=== PATIENT | male | born 1950 | race Caucasian/White ===

== ENCOUNTER 2018-08-13 22:06 | Emergency (ER) | payer SELFPAY ==
[2018-08-13 22:12] VITALS: BMI 36.7
[2018-08-14] MEDS ORDERED: ACETAMINOPHEN 1000 MG/100 ML VIAL (NON FORMULARY) IVPB ONE (00:27)
--- NOTE | 2018-08-14 00:52 | PDOC ---
History of Present Illness - General Chief Complaint: Blood Pressure Problem Stated Complaint: HYPERTENTION Time Seen by Provider: 08/13/18 23:58 - History of Present Illness Initial Comments: Guido Skaggs is a 67yo man with a PMH of HTN and NIDDM who presents reporting severe abdominal pain secondary to an umbilical hernia. He is mostly [place]ian speaking, and his sons are at bedside to help translate. He reports that he was feeling well today, went to his son's business for a snack, and began having acute onset of severe abdominal pain. This occurred around 6pm. The pain was initially generalized, and his stomach felt firm. He noticed that his umbilical hernia was "sticking out," which it has never done for any length of time previously, though he did know that he had a hernia. He attempted to wait out the pain at home, but he was unable to do so and presented to the ED after a few hours. He says that due to the abdominal pain, he did not take his evening blood pressure medications when he normally does. The meds were taken several hours late, but he did take his usual dose. He does not remember what medications he takes at home, however. Other than the pain today, he has been feeling well. He ate normal meals today, has had no change in bowel movements, has no nausea or vomiting, and denies any fevers or chills. He additionally denies any headache, neurological deficits, change in vision, chest pain, SOB, or change in urination frequency today. Past History - Past Medical History Allergies/Adverse Reactions: Allergies Allergy/AdvReac Type Severity Reaction Status Date / Time No Known Allergies Allergy Verified 08/13/18 22:12 COPD: No Diabetes: Yes HTN: Yes - Suicide/Smoking/Psychosocial Hx Smoking History: Unknown if ever smoked Review of Systems - Review of Systems Comments:: General: No fevers, no chills, no weight or appetite change, no malaise HEENT: No changes in vision, no changes in hearing, no congestion, no sore throat CV: No chest pain, no palpitations, no LE edema Pulm: No SOB, no cough, no wheezing GI: No nausea or vomiting, no change in bowel habits, no melena. See HPI : No frequency, no urgency, no dysuria Musc: No back pain, no joint swelling, no recent injury Skin: No rash, no lesions, no erythema Endo: No excessive thirst, no heat/cold intolerance Heme: No unusual bruising or bleeding, no swollen glands Neuro: No syncope, no numbness/tingling, no focal weakness Vasc: No claudication Psych: No recent change in mood, no SI or HI *Physical Exam - Vital Signs Last Vital Signs Temp Pulse Resp BP Pulse Ox 97.4 F L 65 18 229/108 H 98 08/13/18 22:07 08/13/18 22:07 08/13/18 22:07 08/13/18 22:07 08/13/18 22:07 - Physical Exam Comments: General: Uncomfortable but in no acute distress HEENT: PERRL, EOMI, MMM, voice normal, normal neck ROM Cards: RRR, no murmur appreciated Pulm: Comfortable on room air, clear to auscultation bilaterally Abd: Soft, nondistended, obese. 3cm round umbilical hernia, moderately TTP during attempts to reduce but not exquisitely tender. No erythema, edema, skin darkening. Ext: Atraumatic. No LE edema. ROM intact Vasc: Extremities WWP Skin: Normal color, no rashes or lesions Neuro: A&Ox3, CN grossly intact, normal speech, motor/sensory grossly intact and symmetric Psych: Mood appropriate to situation ED Treatment Course - LABORATORY CBC & Chemistry Diagram: 08/14/18 00:50 08/14/18 00:50 - RADIOLOGY Radiology Studies Ordered: Category Date Time Status ABDOMEN & PELVIS CT WITH CONTR [CT] Stat CT Scan 08/14/18 00:28 Ordered Medical Decision Making - Medical Decision Making 08/14/18 00:52 Guido Skaggs is a 67yo man with a PMH of HTN and NIDDM who presents with abdominal pain due to an umbilical hernia that has become stuck since about 6pm. He states that this has never happened in the past, the hernia has always spontaneously reduced without intervention. He denies any fevers, chills, nausea , change in bowel habits or other current symptoms. He was noted to be hypertensive to the 200's on arrival, though he reports taking his medications very late today; he denies any neurological symptoms, chest pain, lack of normal urination, or other symptoms concerning for hypertensive emergency. - Visible umbilical hernia. TTP but no erythema or edema surrounding. Does not appear strangulated - Pt did not tolerate attempt to reduce the hernia at bedside due to pain - Preop labs including CBC, CMP, coags, T&S. Lactate to evaluate for ischemia - IV acetaminophen, will reattempt to reduce the hernia. - HTN may be due to pain or taking meds late; will recheck 08/14/18 01:52 - Hernia successfully reduced at bedside after pt received acetaminophen - Discussed w/ patient and his family at bedside that he needs to see a surgeon as the hernia defect is still present, and he could have a recurrence of incarcerated or possibly strangulated hernia in the future. All state understanding. Mr Skaggs says that he is going to [place] tomorrow but will follow up with a surgeon there as soon as possible - BP rechecked, now 164/74 - Will most likely d/c home pending lab results. 08/14/18 02:06 - Labs unremarkable. Will d/c home - Reitterated to Mr Skaggs that he needs to see a surgeon. Discussed return precautions. He states understanding and agreement. Seen with Dr Wilkinson. Candy Sloan PGY2 *DC/Admit/Observation/Transfer Diagnosis at time of Disposition: Umbilical hernia Qualifiers: Obstruction and gangrene presence: without obstruction or gangrene Qualified Code(s): K42.9 - Umbilical hernia without obstruction or gangrene - Discharge Dispostion Disposition: HOME Condition at time of disposition: Stable Decision to Admit order: No - Referrals Referrals: Uday Taylor MD [Staff Physician] - - Patient Instructions Printed Discharge Instructions: DI for Ventral Hernia Additional Instructions: Discharge Instructions: You were seen in the ED for abdominal pain due to an umbilical (abdominal) hernia that became stuck. This was pushed back into place in the ED. Home Care and Follow Up: - If your hernia becomes stuck again, you may use firm constant pressure to push it back into place - You need to see a surgeon as soon as possible as your hernia may need surgical repair. You should try to see a surgeon within the next week. You have been given contact information for Dr Taylor if you want to see someone from [facility], but you should try to schedule an appointment as soon as possible when you arrive in [place]. - Seek immediate medical care if your hernia cannot be pushed back especially if you also have fever to 101F, notice redness or swelling on the overlying skin , you have nausea and vomiting, you stop having bowel movements or passing gas, the hernia is so painful you cannot touch it, or you have any other medical emergency. - Post Discharge Activity
[2018-08-14] MEDS ORDERED: ACETAMINOPHEN INJECTION 100 ML IVPB ONE (00:58)
[2018-08-14 01:02] LABS: BASO % 0.8 % (0-2.0); EOS % 5.3 % (0-4.5); HEMATOCRIT 47.7 % (35.4-49); HEMOGLOBIN 15.5 GM/dL (11.7-16.9); LYMPH % 19.1 % (8-40); MCH 27.1 pg (25.7-33.7); MCHC 32.5 g/dl (32.0-35.9); MEAN CELL VOLUME 83.3 fl (80-96); MEAN PLT VOLUME 7.6 fl (7.5-11.1); MONO % 9.3 % (3.8-10.2); NEUT % 65.5 % (42.8-82.8); PLATELET COUNT 327 K/MM3 (134-434); RBC 5.73 M/mm3 (4.00-5.60); RDW 15.3 % (11.9-15.9); WHITE BLOOD COUNT 8.3 K/mm3 (4.0-10.0)
[2018-08-14 01:24] LABS: INR 1.23 (0.83-1.09); PROTHROMBIN TIME (PATIENT) 14.5 SEC (9.7-13.0)
[2018-08-14 01:27] LABS: ACTIVATED PTT 35.9 SECONDS (25.2-36.5)
[2018-08-14 01:36] LABS: ALBUMIN 3.7 g/dl (3.4-5.0); BILIRUBIN,TOTAL 0.5 mg/dL (0.2-1); BLOOD UREA NITROGEN 16.9 mg/dL (7-18); CREATININE 0.7 mg/dL (0.55-1.3); MAGNESIUM 2.2 mg/dL (1.8-2.4); POTASSIUM 4.3 mmol/L (3.5-5.1); TOT PROT 7.1 g/dl (6.4-8.2)
--- NOTE | 2018-08-14 01:47 | PDOC ---
Documentation entered by Rober Interiano SCRIBE, acting as scribe for Nelida Wilkinson MD. Nelida Wilkinson MD: This documentation has been prepared by the jasonibe, Rober Interiano SCRIBE, under my direction and personally reviewed by me in its entirety. I confirm that the documentation accurately reflects all work, treatment, procedures, and medical decision making performed by me. Attending Attestation - Resident Resident Name: Candy Sloan - ED Attending Attestation I have performed the following: I have examined & evaluated the patient, The case was reviewed & discussed with the resident, I agree w/resident's findings & plan, Exceptions are as noted - HPI HPI: 08/14/18 00:40 The patient is a 67 year old male with a past medical history of diabetes, umbilical hernia, and HTN here today for evaluation of incarcerated umbilical hernia. The patient reports around 5 PM developed pain at the site of his hernia. He reports that because of this he forgot to take his blood pressure medication. Blood pressure on arrival was 229/118. Patient denies headache, lightheadedness. Denies fever, chills. Denies chest pain, shortness of breath. Denies nausea, vomiting, diarrhea. Allergies: NKA - Physicial Exam PE: 08/14/18 01:21 Well developed, well nourished. Awake and alert. No acute distress. HEENT: Normocephalic, atraumatic. PERRLA, EOMI. No conjunctival pallor. Sclera are non- icteric. Moist mucous membranes. Oropharynx is clear. NECK: Supple. Full ROM. No JVD. Carotid pulses 2+ and symmetric, without bruits. No thyromegaly. No lymphadenopathy. CARDIOVASCULAR: Regular rate and rhythm. No murmurs, rubs, or gallops. Distal pulses are 2+ and symmetric. PULMONARY: No evidence of respiratory distress. Lungs clear to auscultation bilaterally. No wheezing, rales or rhonchi. ABDOMINAL: +incarcerated umbilical hernia that was reduceable. Soft. Non-distended. No rebound or guarding. No organomegaly. Normoactive bowel sounds. MUSCULOSKELETAL Normal range of motion at all joints. No bony deformities or tenderness. No CVA tenderness. EXTREMITIES: No cyanosis. No clubbing. No edema. No calf tenderness. SKIN: Warm and dry. Normal capillary refill. No rashes. No jaundice. NEUROLOGICAL: Alert, awake, appropriate. Cranial nerves 2-12 intact. No deficits to light touch and temperature in face, upper extremities and lower extremities. No motor deficits in the in face, upper extremities and lower extremities. Normoreflexic in the upper and lower extremities. Normal speech. Toes are down- going bilaterally. Gait is normal without ataxia. PSYCHIATRIC: Cooperative. Good eye contact. Appropriate mood and affect. - Medical Decision Making 08/14/18 01:43 67-year-old male presents with umbilical pain that started late this afternoon. On exam, he has a protubernt , tender, hard umbilicus. Using manual pressure his umbilical hernia was reduced and his pain resolved. Initially his blood pressure was recorded as 229/108. However after the reduction of his umbilical hernia,his BP was 164/74 08/14/18 01:46 imp umbilical hernia,reduced and hypertension pt is leaving to go back to his country([place]) and he states he will followup with a surgeon in [place] 08/14/18 01:49
[2018-08-14 02:11] VITALS: BP 136/85; PULSE 67; TEMP 98.2
== END 2018-08-14 02:15 | disposition home or self-care (01) ==
LOC: JER 22:06
PROC: 3E033NZ Introduction of Analgesics, Hypnotics, Sedatives into Peripheral Vein, Percutaneous Approach (ICD-10-PCS; principal; 2018-08-13)
DX: K42.9 Umbilical hernia without obstruction or gangrene (principal); I10 Essential (primary) hypertension; E11.9 Type 2 diabetes mellitus without complications; Z79.84 Long term (current) use of oral hypoglycemic drugs
CPT/HCPCS: 36415; 80053; 82550; 83605; 83735; 84484; 85025; 85610; 85730; 86850; 86900; 86901; 99281-25; J0131